=== PATIENT | male | born 1990 | race Caucasian/White ===

== ENCOUNTER 2023-09-14 00:33 | Emergency (ER) | payer MEDICAID ==
[~2023-09-14] VITALS: Ht 175.3 cm; Wt 81.6 kg
[2023-09-14] MEDS ORDERED: IV NORMAL SALINE 1000 ML BAG IV ONE (01:15)
[2023-09-14] MEDS ORDERED: VANCOMYCIN IV 1,000 MG in IV DEXTROSE 5% 250 ML IV ONE (01:15)
[2023-09-14] MEDS ORDERED: VANCOMYCIN IV 0 ML ONE (01:16)
[2023-09-14] MEDS ORDERED: DOXY100C5 PO (01:44)
[2023-09-14] MEDS ORDERED: DOXYCYCLINE HYCLATE 100 MG TABLET ONE (01:48)
[2023-09-14] MEDS: DOXYCYCLINE HYCLATE 100 MG TABLET PO ONE (01:52)
[2023-09-14 01:57] VITALS: BP 118/70; TEMP 98; O2SAT 99
== END 2023-09-14 01:57 | disposition home or self-care (01) ==
LOC: ER 00:46
DX: L03.115 Cellulitis of right lower limb (principal); F17.200 Nicotine dependence, unspecified, uncomplicated; Z60.2 Problems related to living alone; Z79.899 Other long term (current) drug therapy
CPT/HCPCS: A4606; A4663; J3370; J7040

== ENCOUNTER 2024-03-21 01:18 | Emergency (ER) | payer MEDICAID ==
[~2024-03-21] VITALS: Ht 175.3 cm; Wt 81.6 kg
[~2024-03-21 01:18] MED LIST: DOXY100C5 PO
[2024-03-21] MEDS ORDERED: DOXYCYCLINE HYCLATE 100 MG TABLET ONE (01:48)
[2024-03-21] MEDS: DOXYCYCLINE HYCLATE 100 MG TABLET PO ONE (01:51)
[2024-03-21] MEDS ORDERED: DOXY100C5 PO (01:55)
[2024-03-21 03:20] VITALS: BP 122/78; TEMP 98; O2SAT 100
== END 2024-03-21 03:21 | disposition home or self-care (01) ==
LOC: ER 01:30
DX: L03.116 Cellulitis of left lower limb (principal); L03.115 Cellulitis of right lower limb; F19.10 Other psychoactive substance abuse, uncomplicated; F17.290 Nicotine dependence, other tobacco product, uncomplicated; Z86.14 Personal history of Methicillin resistant Staphylococcus aureus infection; Z79.899 Other long term (current) drug therapy
CPT/HCPCS: A4606; A4663